=== PATIENT | female | born 1985 | race Caucasian/White ===

== ENCOUNTER 2018-12-31 05:30 | Inpatient (IN) | payer OTHER ==
[2018-12-31] MEDS ORDERED: HYDROcodone/Acetaminophen 5/325 mg Tablet PO PRN (06:27)
[2018-12-31] MEDS ORDERED: Lidocaine 1% (PF) 30 ML VIAL SC PRN (06:27)
[2018-12-31] MEDS ORDERED: Methylergonovine 0.2 MG/ML VIAL IM PRN (06:27)
[2018-12-31] MEDS ORDERED: hydrALAZINE 20 MG/ML VIAL SLOW IVP PRN ×2 (06:27→19:14)
[2018-12-31] MEDS ORDERED: Ondansetron PF 4 MG/2 ML Vial IVP PRN ×2 (06:27→10:27)
[2018-12-31] MEDS ORDERED: Butorphanol Tartrate 1 MG/ML VIAL SLOW IVP PRN (06:27)
[2018-12-31] MEDS ORDERED: NS / Oxytocin 40 units/1000ml 1,000 ML IV PRN (06:27)
[2018-12-31] MEDS ORDERED: Misoprostol 200 MCG TAB PR PRN (06:27)
[2018-12-31] MEDS ORDERED: Promethazine HCl 25 MG/ML VIAL IM PRN ×2 (06:27→10:27)
[2018-12-31] MEDS ORDERED: Acetaminophen 500 MG TAB PO PRN (06:27)
[2018-12-31] MEDS ORDERED: Carboprost 250 MCG/ML AMP IM PRN (06:27)
[2018-12-31] MEDS ORDERED: Ibuprofen 800 MG TAB PO PRN (06:27)
[2018-12-31] MEDS ORDERED: NS w/ Oxytocin 10 units 500 ML IV SCH (06:30)
[2018-12-31 06:34] VITALS: BMI 34.0
[2018-12-31] MEDS: Lactated Ringer's 1,000 ML IV SCH ×4 (06:51→14:00)
[2018-12-31 07:05] LABS: Hemoglobin 12.8 g/dL (12.0-16.0); Mean Corpuscular HGB CONC 34.7 g/dL (32.0-36.0); Mean Corpuscular Hemoglobin 29.2 pg (27.0-31.0); Mean Corpuscular Volume 84.2 fL (78.0-98.0); Mean Platelet Volume 8.3 fL (7.4-10.4); Platelet Count 196 thou/uL (130-400); RBC Distribution Width 13.3 % (11.5-14.5); Red Blood Cell (RBC) Count 4.37 mill/uL (4.20-5.40); White Blood Cell (WBC) Count 11.2 thou/uL (4.8-10.8)
[2018-12-31 07:40] LABS: Syphilis Antibody Nonreactive (Nonreactive); Syphilis Antibody Index 0.04 S/CO (<1.00 Non-Reactive)
[2018-12-31 07:41] LABS: HBSAg Index 0.17 S/CO (0-0.99); Hep B Surf Ag Non-Reactive S/CO (NonReactive)
[2018-12-31] MEDS ORDERED: ePHEDrine/0.9% NaCl/PF SYRINGE 50 mg/10 ml ONE (09:00)
[2018-12-31] MEDS ORDERED: Bupivacaine/Epinephrine 0.25% 30 ML VIAL ONE (09:00)
[2018-12-31] MEDS ORDERED: Fentanyl 4 mcg/Bup 0.1% Cadd 100 ML ONE (09:16)
[2018-12-31] MEDS ORDERED: Fentanyl 100 MCG/2 ML VIAL ONE (09:55)
[2018-12-31] MEDS ORDERED: Naloxone HCl 0.4 mg/ml Vial IVP PRN ×2 (10:27)
[2018-12-31] MEDS ORDERED: ePHEDrine/0.9% NaCl/PF SYRINGE 50 mg/10 ml SLOW IVP PRN (10:27)
[2018-12-31] MEDS ORDERED: Lactated Ringer's 500 ML IV PRN (10:27)
[2018-12-31] MEDS ORDERED: diphenhydrAMINE 50 MG/ML VIAL IVP PRN (10:27)
[2018-12-31] MEDS ORDERED: Acetaminophen 325 MG TAB PO PRN (10:27)
[2018-12-31] MEDS ORDERED: Communication Order-Pharmacy FS SCH (10:30)
[2018-12-31] MEDS ORDERED: Fentanyl 4 mcg/Bupivacaine 0.1% Cassette 100 ML EPIDURAL SCH (10:30)
[2018-12-31] MEDS ORDERED: Hydrocerin (Eucerin) Cream 120 gm Jar ONE (10:42)
[2018-12-31] MEDS ORDERED: Hydrocerin (Eucerin) Cream 120 gm Jar TOP SCH (11:00)
--- NOTE | 2018-12-31 13:28 | PDOC.LDHP ---
Labor and Delivery H&P Chief complaint: scheduled induction HPI: at 39 weeks for IOL at term. Favorable cervix. Current gestational age (weeks): 39 Due date: 01/07/19 Dating criteria: first trimester ultrasound Grav: 2 Para: 2 Current complications: none Abnormal US findings: No Current medications: pre-carey vitamins Previous surgical history: none Allergies/Adverse Reactions: Allergies Allergy/AdvReac Type Severity Reaction Status Date / Time No Known Allergies Allergy Verified 12/31/18 06:37 Social history: none - Physical Exam Vital signs reviewed and normal: yes General: NAD Heart: RRR Lungs: CTAB Abdomen: gravid Extremeties: no edema FHT: category 1 - Vaginal Exam cm dilated: 3 Effacement: 50% Station: -2 - OB Labs Blood type: A RH: positive Antibody Screen: negative HIV: negative RPR: negative HEPSAg: negative 1 hour GCT: negative GBS: negative Urine drug screen: not done Rubella: non-immune - Assessment L&D Assessment: elective induction at term - Plan Plan: admit to L&D, labor augmentation if indicated, anesthesia consult for pain management
--- NOTE | 2018-12-31 13:30 | PDOC.EVN ---
Event Note - Event Note Event Note: Comfortable with epidural. On 16 of pitocin. CTX every 2-4 minutes. SVE 6//- 1. AROM with clear fluid. Tolerated well. FHT category I throughout.
--- NOTE | 2018-12-31 14:49 | PDOC.OPDEL ---
OB Operative/Delivery Note Delivery Dr/Surgeon: Jean Carlos Pre-Delivery Diagnosis: elective induction Procedure/Post Delivery Dx: spontaneous vaginal delivery (Head OA, no nuchal cord, shoulders and body easily followed.) Weeks gestation: 39 Anesthesia: epidural - Findings A Sex: female - 1 min: 9 - 5 min: 9 - Additional Findings/Plan Placenta delivered: spontaneous (Intact, 3VC) Repaired Obstetrical Laceration: none Estimated blood loss: 50 Post delivery plan: routine recovery
[2018-12-31] MEDS ORDERED: NS / Oxytocin 40 units/1000ml 1,000 ML IV SCH (19:14)
[2018-12-31] MEDS ORDERED: Bisacodyl 10 MG SUPP PR PRN (19:14)
[2018-12-31] MEDS ORDERED: Measles/Mumps/Rubella 10 MCG/0.5 ML VIAL SC ONE (19:14)
[2018-12-31] MEDS ORDERED: Lanolin Ointment 7 GM TUBE TOP PRN (19:14)
[2018-12-31] MEDS ORDERED: Milk Of Magnesia 30 ML UDCUP PO PRN (19:14)
[2018-12-31] MEDS ORDERED: Adacel (T-DAP) 0.5 ML SYRINGE IM ONE (19:14)
[2018-12-31] MEDS: Docusate Calcium (SURFAK) 240 MG CAP PO SCH (21:28)
[2018-12-31] MEDS: Ferrous Sulfate 325 MG TAB PO SCH (21:31)
[2018-12-31] MEDS ORDERED: Ibuprofen 800 MG TAB PO SCH (22:00)
[2019-01-01] MEDS: Ibuprofen 800 MG TAB PO SCH ×2 (01:12→09:10)
[2019-01-01] MEDS: Ferrous Sulfate 325 MG TAB PO SCH ×2 (07:55→16:23)
[2019-01-01] MEDS: HYDROcodone/Acetaminophen 5/325 mg Tablet PO PRN ×2 (08:40→14:22)
[2019-01-01] MEDS: Docusate Calcium (SURFAK) 240 MG CAP PO SCH (09:10)
--- NOTE | 2019-01-01 10:01 | PDOC.PP ---
Post Progress Note Post Day #: 1 Subjective: Doing well. No complaints. Some cramping but OK with meds. well. PO intake tolerated: yes Flatus: yes Ambulation: yes Vital Signs (12 hours) Temp Pulse Resp BP Pulse Ox 01/01/19 08:19 97.6 F 89 20 101/62 98 01/01/19 07:50 98 01/01/19 04:19 98.0 F 79 20 106/51 L 97 01/01/19 00:55 97.7 F 87 20 98/55 L 97 Weight Weight 192 lb - Physical Examination General: NAD Cardiovascular: no m/r/g, RRR Respiratory: clear to auscultation bilaterally, non-labored breathing Abdominal: + bowel sounds, lochia, no distention, appropriately TTP Neurological: no gross focal deficits Psychiatric: A&Ox3 Result Diagrams: 12/31/18 06:44 Additional Labs: Post Labs Blood Type A POSITIVE 12/31/18 06:44 Hep Bs Antigen Non-Reactive S/CO (NonReactive) 12/31/18 06:44 (1) Vaginal delivery Code(s): O80 - ENCOUNTER FOR FULL-TERM UNCOMPLICATED DELIVERY Status: Acute - Assessment/Plan Routine PP skilled nursing this PM
[2019-01-01 11:32] VITALS: BP 101/61; TEMP 98.1
== END 2019-01-01 17:00 | disposition home or self-care (01) | DRG 807 ==
LOC: L&D 05:36 → 3SW 21:14
PROVIDERS: ADMIT Family Medicine; ATTEND Family Medicine
PROC: 10907ZC Drainage of Amniotic Fluid, Therapeutic from Products of Conception, Via Natural or Artificial Opening (ICD-10-PCS; principal; 2018-12-31)
PROC: 10E0XZZ Delivery of Products of Conception, External Approach (ICD-10-PCS; 2018-12-31)
DX: O80 Encounter for full-term uncomplicated delivery (principal); Z37.0 Single live birth; Z3A.39 39 weeks gestation of pregnancy
CPT/HCPCS: 36415; 51702; 85027; 86780; 86850; 86900; 86901; 87340; 90707; 90715; J1200; J2001; J2405; J2590; J3010